=== PATIENT | female | born 1965 | race Caucasian/White ===

== ENCOUNTER 2018-12-04 10:40 | Inpatient (IN) | payer BC ==
[2018-11-23 12:26] LABS: BASOPHILS % (AUTO) 0.3 % (0-1); EOSINOPHILS # (AUTO) 0.1 X10'3 (0-0.9); EOSINOPHILS % (AUTO) 1.1 % (0-6); LYMPHOCYTES # (AUTO) 2.2 X10'3 (1.1-4.8); LYMPHOCYTES % (AUTO) 36.7 % (21-51); MEAN CORPUSCULAR HEMOGLOBIN 29.1 PG (27.0-31.0); MEAN CORPUSCULAR VOLUME 88.2 FL (78-98); MEAN PLATELET VOLUME 9.2 FL (7.4-10.4); MONOCYTES # (AUTO) 0.4 X10'3 (0-0.9); MONOCYTES % (AUTO) 7.1 % (2-12); NEUTROPHILS # (AUTO) 3.3 X10'3 (1.8-7.7); NEUTROPHILS % (AUTO) 54.8 % (42-75); PRE OP HEMOGLOBIN 13.2 g/dL (12.0-16.0); PRE OP PLATELET COUNT 308 X10'3 (140-440); RED BLOOD COUNT 4.54 X10'6 (4.20-5.60); RED CELL DISTRIBUTION WIDTH 12.5 % (11.5-14.5)
[2018-11-23 12:27] LABS: CLARITY,URINE CLEAR (Clear); COLOR,URINE YELLOW (Yellow); GLUCOSE, URINE NEGATIVE (Neg); KETONES,URINE NEGATIVE (Neg); LEUKOCYTE ESTERASE ,URINE NEGATIVE (Neg); NITRITES, URINE NEGATIVE (Neg); OCCULT BLOOD,URINE NEGATIVE (Neg); PROTEIN,URINE NEGATIVE (Neg); UROBILINOGEN,URINE 0.2 E.U/dL (0.2-1.0)
[2018-11-23 12:29] LABS: UA COLLECTION TYPE NON-SPECIFIED
[2018-11-23 12:32] LABS: PRE OP PROTIME 10.1 SECONDS (9.0-12.0)
[2018-11-23 12:42] LABS: ALBUMIN 3.9 G/DL (3.4-5.0); ALKALINE PHOSPHATASE 48 IU/L (46-116); BLOOD UREA NITROGEN 14 MG/DL (7-18); BUN/CREATININE RATIO 17.3 (6.6-38.0); CALCIUM 9.7 MG/DL (8.5-10.1); CHLORIDE 102 MMOL/L (99-107); CREATININE 0.81 MG/DL (0.40-0.90); PRE OP ALT 36 U/L (30-65); PRE OP ANION GAP 6 (8-16); PRE OP AST 25 U/L (10-37); PRE OP BILIRUB, TOTAL 0.2 MG/DL (0.0-1.0); PRE OP GLUCOSE 103 MG/DL (70-104); PRE OP SODIUM 139 MMOL/L (135-145); TOTAL CARBON DIOXIDE 30.8 MMOL/L (24-32); eGFR 74 ML/MIN
[~2018-12-04] VITALS: Ht 170.2 cm; Wt 95.4 kg
[2018-12-04] VITALS (16 sets, daily range): BP systolic 125–160; BP diastolic 51–86
[~2018-12-04 10:40] MED LIST: ASCO500C15 PO; CALC-1051 PO; CETI-102 PO; CHOL10002 PO; ESTR1TAB19 PO; FISH12002 PO; MULT-933 PO; OMEP-84 PO; THY60T PO; acetaminophen 325mg tablet PO ONE; celeCOXIB 100mg capsule PO ONE; famotidine 20mg tablet PO ONE; gabapentin 300mg capsule PO ONE; oxyCODONE SR 10mg (sust. release) tab -2 tabs (20mg) PO ONE; ringers solution, lacted 1,000 ML IV SCH; tranexamic acid inj. 1,000 MG in normal saline 100 ML IV ONE; vancomycin inj 1,500 MG in normal saline 300ml IV soln IV ONE
[2018-12-04] MEDS ORDERED: LIDOcaine 1% (10mg/ml) 2ml vial ONE (12:18)
[2018-12-04] MEDS ORDERED: bacitracin inj 150,000 UNIT in sodium chloride irrig. sol 3,000 ML IR ONE (13:00)
[2018-12-04] MEDS ORDERED: ROPIVAcaine 0.5% (5mg/ml) 30ml vial ONE ×2 (13:28→13:43)
[2018-12-04] MEDS ORDERED: dexmedetomidine 200mcg/2ml inj. IV ONE (13:42)
[2018-12-04] MEDS ORDERED: sevoflurane 250ml liquid IH ONE (13:42)
[2018-12-04] MEDS ORDERED: dexamethasone sod phosphate 10mg/ml inj ONE (13:42)
[2018-12-04] MEDS ORDERED: tetracaine 1% (10mg/ml) pres. free inj. ONE (13:43)
[2018-12-04] MEDS ORDERED: morphine /PF 1mg/ml 10ml inj. ONE (13:47)
[2018-12-04] MEDS ORDERED: fentaNYL/PF 50MCG/1 ML 2ML syringe ONE (13:47)
[2018-12-04] MEDS ORDERED: ondansetron/PF 4mg/2ml inj ONE (14:29)
[2018-12-04] MEDS ORDERED: propofol inj 20 ML IV ONE (14:29)
[2018-12-04] MEDS ORDERED: ringers solution, lacted 1,000 ML IV SCH (14:41)
[2018-12-04] MEDS ORDERED: diphenhydrAMINE 50 mg/ml inj IV PRN (14:45)
[2018-12-04] MEDS ORDERED: enalaprilat dihydrate 2.5mg/2ml vial IV PRN (14:45)
[2018-12-04] MEDS ORDERED: fentaNYL/PF 50MCG/1 ML 2ML syringe IV PRN ×2 (14:45)
[2018-12-04] MEDS ORDERED: meperidine/PF 25mg/ml syringe IV PRN ×2 (14:45)
[2018-12-04] MEDS ORDERED: hydrALAZINE 20mg/ml inj. IV PRN (14:45)
[2018-12-04] MEDS ORDERED: ondansetron/PF 4mg/2ml inj IV PRN ×2 (14:45)
[2018-12-04] MEDS ORDERED: bisacodyl 10mg suppository rectal RC PRN (16:10)
[2018-12-04] MEDS ORDERED: magnesium hydroxide 30ml (MOM) UD suspension PO PRN (16:10)
[2018-12-04] MEDS ORDERED: acetaminophen 325mg tablet PO PRN (16:10)
[2018-12-04] MEDS ORDERED: diphenhydrAMINE 25mg capsule PO PRN ×2 (16:10)
--- NOTE | 2018-12-04 16:34 | NUR ---
Received from OR via , accompanied by DR. PATINO, Anesthesiologist and report given by Anesthesiolgist. S/P RT. TKA PER DR. HOGAN W/ SPINAL ANESTHESIA. PT. A X O X 4. APPROP. RESPS. EVEN & UNLABORED. SPINAL LEVEL L1. NO MOVEMENT OF TOES @ THIS TIME. RT KNEE BANDAGE DRY & INTACT. POWDER YAMILKA IN PLACE KNEE BRACE TO RT. KNEE IN PLACE FROM OR. HEMOVAC DRAIN TO MARIELA W/ SM. AMT. SANG DRAINAGE PRESENT. RT. FOOT PINK, WARM W/ GOOD CAP REFILL. + PALP RT. DP PULSE PRESENT. HOLLOWAY TO GRAVITY W/ CL. YELLOW URINE PRESENT. RT. HAND IV PATENT. REASSURED.
--- NOTE | 2018-12-04 17:25 | NUR ---
Report called to receiving nurse, VIPUL CHAPIN . Transferred via BED. Belongings W/ PT. PT. A X O X 4. APPROP. RESPS. EVEN & UNLABORED. SPINAL LEVEL L2. DENIES PAIN. RT. KNEE BANDAGE DRY & INTACT. POWDER YAMILKA IN PLACE, KNEE BRACE IN PLACE. HEMOVAC DRAIN TO MARIELA W/ SM. AMT. SANG DRAINAGE PRESENT. RT. FOOT PINK, WARM W/ GOOD CAP REFILL. + PALP. PULSES LT. FOOT. HOLLOWAY TO GRAVITY W/ CL. YELLOW URINE. RT. HAND IV PATENT. REASSURED. . Special Issues communicated to receiving nurse.
--- NOTE | 2018-12-04 18:55 | NUR ---
Student documentation: I have reviewed and agree with all interventions, assessments performed and documented by FRANCIS MACK.
[2018-12-04] MEDS ORDERED: vancomycin/NS 1 GM ADD-VANTAGE 250 ML IV SCH (20:00)
[2018-12-04] MEDS: ondansetron/PF 4mg/2ml inj IV PRN (20:03)
[2018-12-04] MEDS: potassium cl 20mEq in 1/2 NS 1,000 ML IV SCH (20:09)
[2018-12-04] MEDS: gabapentin 300mg capsule PO SCH (20:40)
[2018-12-04] MEDS: oxyCODONE/APAP 10/325mg tablet PO PRN (20:41)
[2018-12-04] MEDS: ascorbic acid 500mg tablet PO SCH (20:41)
[2018-12-04] MEDS: sennosides 8.6mg tablet PO SCH (21:00)
[2018-12-04] MEDS ORDERED: proCHLORperazine 10 MG/2 ml inj IV PRN (22:25)
[2018-12-05] MEDS: oxyCODONE/APAP 10/325mg tablet PO PRN ×6 (01:13→22:19)
[2018-12-05 02:00] VITALS: BP 93/43
[2018-12-05] MEDS: potassium cl 20mEq in 1/2 NS 1,000 ML IV SCH ×3 (03:20→20:37)
[2018-12-05 06:00] VITALS: BP 94/52
[2018-12-05 06:12] LABS: BASOPHILS % (AUTO) 0.2 % (0-1); EOSINOPHILS % (AUTO) 0 % (0-6); HEMOGLOBIN 10.5 g/dl (12.0-16.0); LYMPHOCYTES # (AUTO) 1.2 X10'3 (1.1-4.8); MEAN CORPUSCULAR HGB CONC 33.9 g/dL (33.0-36.5); MEAN CORPUSCULAR VOLUME 88.4 FL (78-98); MEAN PLATELET VOLUME 9.3 FL (7.4-10.4); MONOCYTES # (AUTO) 0.6 X10'3 (0-0.9); MONOCYTES % (AUTO) 5.6 % (2-12); NEUTROPHILS # (AUTO) 9.3 X10'3 (1.8-7.7); NEUTROPHILS % (AUTO) 83.2 % (42-75); PLATELET COUNT 236 X10'3 (140-440); RED BLOOD COUNT 3.51 X10'6 (4.20-5.60); RED CELL DISTRIBUTION WIDTH 12.4 % (11.5-14.5); WHITE BLOOD COUNT 11.1 X10'3 (4.5-11.0)
[2018-12-05 06:17] LABS: ANION GAP 8 (8-16); CHLORIDE 105 MMOL/L (99-107); POTASSIUM 4.1 MMOL/L (3.5-5.1); SODIUM 138 MMOL/L (135-145); TOTAL CARBON DIOXIDE 24.9 MMOL/L (24-32)
--- NOTE | 2018-12-05 06:28 | NUR ---
Report given to Kellen MATTHEW.
[2018-12-05 06:34] LABS: INR 1.1 INR
[2018-12-05] MEDS: lactose-reduced food (Ensure High Protein) 237ml bottle PO SCH (08:00)
[2018-12-05] MEDS: estradiol 1mg tablet PO SCH (08:00)
[2018-12-05] MEDS: ondansetron/PF 4mg/2ml inj IV PRN (08:08)
[2018-12-05] MEDS: multivitamins, therapeutics tablet PO SCH (09:28)
[2018-12-05] MEDS: gabapentin 300mg capsule PO SCH ×3 (09:28→20:41)
[2018-12-05] MEDS: pantoprazole 40mg Tablet.DR PO SCH (09:28)
[2018-12-05] MEDS: thyroid, pork 30mg tablet PO SCH (09:29)
[2018-12-05] MEDS: ascorbic acid 500mg tablet PO SCH ×2 (09:29→20:42)
[2018-12-05 10:00] VITALS: BP 99/55
[2018-12-05] MEDS ORDERED: warfarin 10mg tablet PO ONE (10:00)
[2018-12-05] MEDS: HYDROmorphone 1 mg/ml syringe IV PRN ×2 (17:22→23:19)
--- NOTE | 2018-12-05 17:59 | NUR ---
Joint replacement consult: Pt seen by ABBI for written/verbal high protein ed. ABBI reviewed high protein needs for wound healing, immune strength, high protein foods, and protein supplementation options. Pt agrees to galocolate ensure high protein TIRasWGosia; and dietary notified. Addendum: 12/05/18 at [address] Amended: Links added.
[2018-12-05 18:00] VITALS: BP 116/40
--- NOTE | 2018-12-05 18:30 | NUR ---
Problems reprioritized. Patient report given, questions answered & plan of care reviewed with VIPUL Tovar.
[2018-12-05] MEDS: celeCOXIB 100mg capsule PO SCH (20:41)
[2018-12-05] MEDS: sennosides 8.6mg tablet PO SCH (20:42)
[2018-12-05 22:00] VITALS: BP 111/64
[2018-12-06] MEDS: potassium cl 20mEq in 1/2 NS 1,000 ML IV SCH (00:09)
[2018-12-06 02:00] VITALS: BP 113/59
[2018-12-06] MEDS: oxyCODONE/APAP 10/325mg tablet PO PRN ×3 (02:07→10:26)
[2018-12-06 06:00] VITALS: BP 124/80
--- NOTE | 2018-12-06 06:00 | NUR ---
Removed sprague catheter as ordered, patient tolerated well. Pt verbalized understanding to use call light for assistance to restroom. Call light within reach of patient.
--- NOTE | 2018-12-06 06:10 | NUR ---
Report given to Kellen MATTHEW.
[2018-12-06 06:35] LABS: BASOPHILS % (AUTO) 0.2 % (0-1); EOSINOPHILS % (AUTO) 0.3 % (0-6); HEMATOCRIT 31.3 % (35.0-45.0); HEMOGLOBIN 10.5 g/dl (12.0-16.0); LYMPHOCYTES # (AUTO) 1.8 X10'3 (1.1-4.8); LYMPHOCYTES % (AUTO) 16.7 % (21-51); MEAN CORPUSCULAR HEMOGLOBIN 29.8 PG (27.0-31.0); MEAN CORPUSCULAR HGB CONC 33.5 g/dL (33.0-36.5); MEAN CORPUSCULAR VOLUME 89.1 FL (78-98); MEAN PLATELET VOLUME 9.5 FL (7.4-10.4); MONOCYTES % (AUTO) 9.1 % (2-12); NEUTROPHILS # (AUTO) 7.9 X10'3 (1.8-7.7); NEUTROPHILS % (AUTO) 73.7 % (42-75); PLATELET COUNT 217 X10'3 (140-440); RED BLOOD COUNT 3.51 X10'6 (4.20-5.60); WHITE BLOOD COUNT 10.7 X10'3 (4.5-11.0)
[2018-12-06 06:45] LABS: INR 1.3 INR; PROTHROMBIN TIME 13.3 SECONDS (9.0-12.0)
[2018-12-06] MEDS: ondansetron/PF 4mg/2ml inj IV PRN (07:09)
[2018-12-06] MEDS: lactose-reduced food (Ensure High Protein) 237ml bottle PO SCH (08:04)
[2018-12-06] MEDS: gabapentin 300mg capsule PO SCH (08:15)
[2018-12-06] MEDS: estradiol 1mg tablet PO SCH (08:15)
[2018-12-06] MEDS: celeCOXIB 100mg capsule PO SCH (08:15)
[2018-12-06] MEDS: thyroid, pork 30mg tablet PO SCH (08:15)
[2018-12-06] MEDS: ascorbic acid 500mg tablet PO SCH (08:15)
[2018-12-06] MEDS: multivitamins, therapeutics tablet PO SCH (08:15)
[2018-12-06] MEDS: pantoprazole 40mg Tablet.DR PO SCH (08:15)
[2018-12-06] MEDS ORDERED: ASPI-1264 PO (09:18)
[2018-12-06] MEDS ORDERED: warfarin 7.5mg tablet PO ONE ×2 (10:00→10:20)
--- NOTE | 2018-12-06 10:45 | NUR ---
Received discharge instructions from CLARA Luna. Saline lock from [facility] dc'd with cannula intact. No redness/swelling at IV site. Applied 2x2 and bandaid. Gave pt 2 Coolpaks to take home today. Pt to receive Nurse & PT services when she arrives home. Discharge teaching done. Provided 2 island dressings for pt when she removes her dressing tomorrow and showers. Pt has RX for pain medication from Dr. Moe. Discharged via w/c to private vehicle for dc to home.
[2018-12-06] MEDS ORDERED: acetaminophen 325mg tablet PO PRN (16:10)
== END 2018-12-06 10:50 | disposition home health service (06) | DRG 470 ==
LOC: PAS IN 11:59 → EDSTATUS 14:00 → ORTHO 4S 17:36
PROVIDERS: ADMIT Specialist; ATTEND Specialist
PROC: 3E0T3BZ Introduction of Anesthetic Agent into Peripheral Nerves and Plexi, Percutaneous Approach (ICD-10-PCS; 2018-12-04)
PROC: 0SRC0J9 Replacement of Right Knee Joint with Synthetic Substitute, Cemented, Open Approach (ICD-10-PCS; principal; 2018-12-04 13:42)
PROC: 5A09357 Assistance with Respiratory Ventilation, Less than 24 Consecutive Hours, Continuous Positive Airway Pressure (ICD-10-PCS; 2018-12-05)
DX: M17.11 Unilateral primary osteoarthritis, right knee (principal); D62 Acute posthemorrhagic anemia; E03.9 Hypothyroidism, unspecified; G47.30 Sleep apnea, unspecified; G89.29 Other chronic pain; M54.2 Cervicalgia; K21.9 Gastro-esophageal reflux disease without esophagitis; M21.161 Varus deformity, not elsewhere classified, right knee; Z90.49 Acquired absence of other specified parts of digestive tract; Z90.710 Acquired absence of both cervix and uterus; Z79.899 Other long term (current) drug therapy; Z88.5 Allergy status to narcotic agent; Z88.0 Allergy status to penicillin; Z88.8 Allergy status to other drugs, medicaments and biological substances
CPT/HCPCS: 36415; 73560; 80051; 80053; 81003; 82948; 84443; 85025; 85610; 85730; 87070; 97110; 97116; 97161; 97530; A6449; A6455; A7000; C1713; C1758; C1776; G0378; J0780; J1100; J1170; J2274; J2405; J2704; J2795; J3010; J3370; J3490; J7030; J7120

== ENCOUNTER 2024-04-24 15:08 | Emergency (ER) | payer BC ==
[~2024-04-24] VITALS: Ht 170.2 cm; Wt 80.7 kg
[~2024-04-24 15:08] MED LIST changes: -ASCO500C15 PO; +ASCO500C18 PO; -CETI-102 PO; +CETI-90 PO; -acetaminophen 325mg tablet PO ONE; -celeCOXIB 100mg capsule PO ONE; -famotidine 20mg tablet PO ONE; -gabapentin 300mg capsule PO ONE; -oxyCODONE SR 10mg (sust. release) tab -2 tabs (20mg) PO ONE; -ringers solution, lacted 1,000 ML IV SCH; -tranexamic acid inj. 1,000 MG in normal saline 100 ML IV ONE; -vancomycin inj 1,500 MG in normal saline 300ml IV soln IV ONE
[2024-04-24 15:33] VITALS: TEMP 97.6
[2024-04-24 15:33] LABS: HEMOGLOBIN 13.1 g/dl (12.0-16.0); MEAN CORPUSCULAR HGB CONC 33.5 g/dL (33.0-36.5)
[2024-04-24 15:35] LABS: BASOPHILS % (AUTO) 0.3 % (0-1); EOSINOPHILS # (AUTO) 0.2 X10'3 (0-0.9); HEMATOCRIT 39.1 % (35.0-45.0); LYMPHOCYTES # (AUTO) 2.8 X10'3 (1.1-4.8); LYMPHOCYTES % (AUTO) 34.3 % (21-51); MEAN CORPUSCULAR VOLUME 89.3 FL (78-98); MEAN PLATELET VOLUME 8.6 FL (7.4-10.4); MONOCYTES # (AUTO) 0.6 X10'3 (0-0.9); MONOCYTES % (AUTO) 7.1 % (2-12); NEUTROPHILS # (AUTO) 4.5 X10'3 (1.8-7.7); NEUTROPHILS % (AUTO) 56.3 % (42-75); PLATELET COUNT 307 X10'3 (140-440); RED BLOOD COUNT 4.38 X10'6 (4.20-5.60); RED CELL DISTRIBUTION WIDTH 12.5 % (11.5-14.5); WHITE BLOOD COUNT 8.1 X10'3 (4.5-11.0)
[2024-04-24 16:04] LABS: ALANINE AMINOTRANSFERASE 26 U/L (12-78); ALBUMIN 3.5 G/DL (3.4-5.0); ALBUMIN/GLOBULIN RATIO 0.9 (1.1-1.5); ALKALINE PHOSPHATASE 47 IU/L (46-116); ANION GAP 10 (8-16); ASPARTATE AMINO TRANSFERASE 21 U/L (10-37); BILIRUBIN,TOTAL 0.2 MG/DL (0.1-1.0); BLOOD UREA NITROGEN 14 MG/DL (7-18); BUN/CREATININE RATIO 17.1 (10.0-20.0); CALCIUM 9.1 MG/DL (8.5-10.1); CHLORIDE 103 MMOL/L (99-107); CREATININE 0.82 MG/DL (0.40-0.90); GLUCOSE 94 MG/DL (70-104); POTASSIUM 3.9 MMOL/L (3.5-5.1); PRO BRAIN NATRIURETIC PEPTIDE 73 PG/ML (0-125); SODIUM 140 MMOL/L (135-145); TOTAL CARBON DIOXIDE 27.4 MMOL/L (24-32); TOTAL PROTEIN 7.5 G/DL (6.4-8.2); eCRCL 71 ML/MIN; eGFR 71 ML/MIN
[2024-04-24 17:01] LABS: FREE T4 (FREE THYROXINE) 0.94 NG/DL (0.73-1.40); MAGNESIUM 1.7 MG/DL (1.5-2.4); THYROID STIMULATING HORMONE 0.66 ulU/ml (0.34-4.50)
[2024-04-24 17:24] LABS: APTT 25 SECONDS (22-32); PROTHROMBIN TIME 10.8 SECONDS (9.0-12.0)
[2024-04-24 18:03] VITALS: BP 126/59; PULSE 82; O2SAT 97
[2024-04-24 18:34] VITALS: RESP 16
== END 2024-04-24 18:05 | disposition home or self-care (01) ==
LOC: ER 15:09
DX: R07.89 Other chest pain (principal); E78.00 Pure hypercholesterolemia, unspecified; Z88.1 Allergy status to other antibiotic agents; Z88.0 Allergy status to penicillin; Z88.5 Allergy status to narcotic agent; Z79.899 Other long term (current) drug therapy; Z98.890 Other specified postprocedural states; Z90.49 Acquired absence of other specified parts of digestive tract; Z90.710 Acquired absence of both cervix and uterus
CPT/HCPCS: 36415; 71045; 80053; 83735; 83880; 84439; 84443; 84484; 85025; 85610; 85730; 93005; 99285

== ENCOUNTER 2025-04-09 16:27 | Observation (INO) | payer BC ==
[~2025-04-09] VITALS: Ht 170.2 cm; Wt 84.2 kg
--- NOTE | 2025-04-09 16:49 | ELECTROCARDIOGRAPH REPORT ---
[facility] Test Date: 2025-04-09 Test Time: 16:34:45 Pat Name: JULIANNA GREGORIO Department: EMERGENCY ROOM Room: [place] [address] Gender: F Special Education Associate: : 1965 Requested By: GORAN JOLLEY Order Number: [id number] Reading MD: Dr. Terry Gomez Measurements Intervals [place] Rate: 60 P: 20 NV: 161 QRS: 18 QRSD: 84 T: 59 QT: 419 QTc: 419 Interpretive Statements Sinus rhythm Anteroseptal infarct, age indeterminate Electronically Signed On 05-08-2025 18:40:[address] Terry Gomez Please click the below link to view image of tracing.
--- NOTE | 2025-04-09 17:30 | RADIOLOGY REPORT ---
CLINICAL HISTORY: CP TECHNIQUE: Single view of the chest was obtained. COMPARISON: DI CHEST,SINGLE VIEW on DOS: 04/24/24 FINDINGS: The heart size and pulmonary vasculature are normal. The lungs are clear. IMPRESSION: NO ACUTE CARDIOPULMONARY PROCESS.
[2025-04-09 17:42] LABS: MEAN PLATELET VOLUME 9.8 FL (7.4-10.4); RED CELL DISTRIBUTION WIDTH 13.1 % (11.5-14.5)
[2025-04-09 17:52] LABS: CREATININE 0.75 MG/DL (0.40-0.90); PRO BRAIN NATRIURETIC PEPTIDE 154 PG/ML (0-125); TOTAL CARBON DIOXIDE 28.9 MMOL/L (24-32); eCRCL 77 ML/MIN; eGFR 79 ML/MIN
--- NOTE | 2025-04-09 22:36 | Physician Documentation ---
History of Present Illness ~ Chief Complaint: Chest Pain Stated Complaint: CHEST PAIN Time Seen by MD: 22:35 Primary Medical Doctor: [facility] Patient presents to the emergency room for evaluation of chest pain sent by her bender hand. She reports that she has been having intermittent chest pain over this past month. Today she has started having chest pain at the office of her cardiology appointment and it is given to nitroglycerines with significant improvement and was directed come to the emergency room. She reports she has not had a stress test within the past 10 years. Reports that pain is central pressure in nature radiating into her back. No current symptoms. Also endorses bilateral lower extremity edema over the past couple of weeks but no pain. Medication Reconciliation Allergies: Coded Allergies: Cephalosporins (Verified Allergy, Mild, RASH, 04/09/25) Penicillins (Verified Allergy, Mild, RASH, 04/09/25) Scheduled Ascorbic Acid (Vitamin C), 1 CAP PO DAILY, (Reported) Calcium Carbonate/Vitamin D3 (Calcium 500 + D Tablet), 1 EACH PO DAILY, (Reported) Cetirizine HCl (Zyrtec), 1 TAB PO DAILY, (Reported) Cholecalciferol (Vitamin D3) (Vitamin D3), 1 TAB PO DAILY, (Reported) Estradiol (Estradiol), 1 TAB PO DAILY, (Reported) Fish Oil/Borage/Flax/Om3,6,9#1 ([place] 3-6-9 1,200 mg Softgel), 1 CAP PO DAILY, (Reported) Multivitamin (One Daily Multivitamin), 1 TAB PO DAILY, (Reported) Omeprazole* (Prilosec*), 40 MG PO DAILY, (Reported) Thyroid* ([place] Thyroid*), 120 MG PO DAILY, (Reported) Past Medical History Past Medical History: High Cholesterol Past Surgical History: appendectomy, cholecystectomy, hysterectomy, orthopedic surgeries Drug Use: none, other Lives In: Home Occupation: employed Review of Systems ROS All review of systems negative except as per HPI Physical Exam Vital Signs: Temperature: 97.7, Source: Temporal, Heart Rate: 62, Respiratory Rate: 14, BP: 134/54, Pulse Oximetry: 97, Weight: 84.250 Oxygen Flow Rate: 0 Physical Exam General: Patient is awake, alert, oriented x4 in no acute distress Head: Normocephalic and atraumatic. Eyes: Conjunctival normal. EOMI. PERRL. ENT: Mucous membranes moist. Neck: Supple, trachea is midline. Chest: Clear to auscultation bilaterally without rales, rhonchi, or wheezes. There is no accessory muscle use or retractions. Cardiac: RRR without murmurs, gallops, or rubs. Abd: Soft, nondistended, nontender, with normoactive bowel sounds. No guarding, rebound, or rigidity. Extremities: Normal strength. Normal range of motion. No deformities with mild bilateral 1+ pitting edema Progress Results/Orders Results/Orders Vital Signs 04/09/25 04/09/25 04/09/25 04/09/25 16:47 20:34 22:08 22:35 Temp 98.5 97.7 97.7 Pulse 64 65 62 Resp 18 16 14 14 B/P (MAP) 143/62 178/73 (108) 134/54 (80) Pulse Ox 97 98 97 O2 Flow Rate 0 0 0 Laboratory Tests Test 04/09/25 16:57 04/09/25 19:25 04/09/25 20:15 White Blood Count 7.3 Red Blood Count 4.21 Hemoglobin 12.2 Hematocrit 36.6 Mean Corpuscular Volume 87.1 Mean Corpuscular Hemoglobin 29.0 Mean Corpuscular Hemoglobin Concent 33.3 Red Cell Distribution Width 13.1 Platelet Count 269 Mean Platelet Volume 9.8 Neutrophils (%) (Auto) 63.0 Lymphocytes (%) (Auto) 28.8 Monocytes (%) (Auto) 6.9 Eosinophils (%) (Auto) 0.7 Basophils (%) (Auto) 0.6 Neutrophils # (Auto) 4.6 Lymphocytes # (Auto) 2.1 Monocytes # (Auto) 0.5 Eosinophils # (Auto) 0.0 Basophils # (Auto) 0.0 CBC Comment Sodium Level 140 Potassium Level 4.1 Chloride Level 104 Carbon Dioxide Level 28.9 Anion Gap 7 L Blood Urea Nitrogen 16 Creatinine 0.75 Estimated GFR/1.73 m2 79 BUN/Creatinine Ratio 21.3 H Glucose Level 91 Calcium Level 9.2 Troponin I High Sensitivity 5 6 6 Pro-B-Type Natriuretic Peptide 154 H Albumin 3.5 Chemistry Comments Troponin I High Sens Percent Delta 20 0 Troponin I Hi Sens Absolute Change 1 0 EKG/XRAY/CT/US/VASC/MRI EKG : Additional Comment EKG interpreted by myself shows time of 1634, rate 60, sinus rhythm, normal axis, no ST changes Chest X-Ray : Additional Comments Exam: CHEST,SINGLE VIEW CLINICAL HISTORY: CP TECHNIQUE: Single view of the chest was obtained. COMPARISON: DI CHEST,SINGLE VIEW on DOS: 04/24/24 FINDINGS: The heart size and pulmonary vasculature are normal. The lungs are clear. IMPRESSION: NO ACUTE CARDIOPULMONARY PROCESS. Medical Decision Making Findings Patient presents to the emergency room for evaluation of chest pain sent by bender hand. Patient has some typical chest pain features and I we will give her two points for her history. Along with the patient's age and risk factors she is considered high risk with a heart score of four. We will admit for further investigation. Departure Admitted to Inpatient Unit: yes, to hospitalist Impression: Primary Impression: Chest pain Condition: Guarded Referrals: NO PRIMARY CARE PROVIDER (PCP) Signature Scribe Signature: No scribe Attestation: The note accurately reflects work and decisions made by me.Talon Antony MD 04/09/25 22:44 TALON ANTONY MD Apr 09, 2025 22:36
[2025-04-10] VITALS (20 sets, daily range): BP systolic 108–164; BP diastolic 48–70; PULSE 58–110; RESP 12–18; TEMP 96.8–98.1; O2SAT 70–100
[2025-04-10] MEDS ORDERED: potassium Cl 20 mEq SR tablet PO PRN ×2 (00:10)
[2025-04-10] MEDS ORDERED: magnesium Cl slow-release 64mg tablet PO PRN (00:10)
[2025-04-10] MEDS ORDERED: ondansetron/PF 4mg/2ml inj IV PRN (00:10)
[2025-04-10] MEDS ORDERED: magnesium sulf-water 4G/100mL 100 ML IV PRN (00:10)
[2025-04-10] MEDS ORDERED: magnesium sulf-water 2g/50mL 50 ML IV PRN (00:10)
[2025-04-10] MEDS ORDERED: magnesium hydroxide 30ml (MOM) UD suspension PO PRN (00:10)
[2025-04-10] MEDS ORDERED: potassium Cl 40MEQ/1/2NS 520ml 520 ML IV PRN (00:10)
[2025-04-10] MEDS ORDERED: mag hydrox/Alum hydrox/simeth 30ml oral suspension PO PRN (00:10)
[2025-04-10] MEDS ORDERED: PERFLUTREN PROTEIN-A MICROSPHR (Optison) 0.22 MG/ML 3ML VIAL IV PRN (00:45)
--- NOTE | 2025-04-10 00:48 | HISTORY AND PHYSICAL-Residence ---
History & Physical Providers to CC Resident Creating Document: MOISES WESLEY, CARMEN ~ History of Present Illness Primary Medical Doctor: Suly Turpin Reason for Admit\Complaint: Unstable Angina History of Present Illness This is a 60-year-old female with known history of MELISSA, recently diagnosed hypertension, presented to ER with complaint of chest pain. Patient states she has been experiencing chest pain for the past one month which is radiating to back and is aggravated on exertion, improves with rest but does not completely resolve. She also feels chest heaviness and pressure on her chest. Her chest pain is associated with sweating and shortness of breaths. She also reports bilateral lower extremity edema for the past couple of weeks, she denies nausea and vomitting,she also feel fatigue fatigue for the past 1 month. [address] patient [facility], where she experienced chest pain and received 2 doses of sublingual nitroglycerin, her pain was significantly improved and she was directed to go to ER. She had echo and stress test done on 2007. She also mentions for the past 1 week her blood pressure is high,On Tuesday she went to [facility] for chest pain and her blood pressure was 189/90, she was admitted there for 1 day and she had ct scan chest abdomen pelvis with contast, patient mentions that it was normal, she reports that her BP has been normal since Tuesday, she is not taking anything for her blood pressure. She also had CT angio Chest done 04/07/2025 which showed no evidence of pulmonary embolism. 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 Patient also mentions in her childhood doctor told her she had a murmur and before every sport she used to have ECG performed. Allergies: Coded Allergies: Cephalosporins (Verified Allergy, Mild, RASH, 04/09/25) Penicillins (Verified Allergy, Mild, RASH, 04/09/25) Home Medications Home Medications Active Reported [place] 3-6-9 1,200 mg Softgel (Fish Oil/Borage/Flax/Om3,6,9#1) 1,200 Mg Capsule 1 Cap PO DAILY Vitamin D3 (Cholecalciferol (Vitamin D3)) 1,000 Unit Tablet 1 Tab PO DAILY Calcium 500 + D Tablet (Calcium Carbonate/Vitamin D3) 1 Each Tablet 1 Each PO DAILY Vitamin C (Ascorbic Acid) 500 Mg Capsule.er 1 Cap PO DAILY One Daily Multivitamin (Multivitamin) 1 Each Tablet 1 Tab PO DAILY Zyrtec (Cetirizine HCl) 10 Mg Tablet 1 Tab PO DAILY Estradiol 1 Mg Tablet 1 Tab PO DAILY Prilosec* (Omeprazole) 20 Mg Capsule.dr 40 Mg PO DAILY [place] Thyroid* (Thyroid) 60 Mg Tablet 120 Mg PO DAILY Past Medical History Past Medical History Obstructive sleep apnea High blood pressure Hypothyroidism Patient also mentions in her childhood doctor told her she had a murmur and before every sport she used to have ECG performed. 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 Lives In: Home Occupation: employed ROS Constitutional: Reports: other (fatigue) Eyes: Reports: no symptoms reported ENT: Reports: no symptoms reported Respiratory: Reports: shortness of breath Cardiovascular: Reports: chest pain Gastrointestinal: Reports: no symptoms reported Genitourinary: Reports: no symptoms reported Female Genitalia: Reports: no reported symptoms Neurological: Reports: no symptoms reported Musculoskeletal: Reports: no symptoms reported Integumentary: Reports: no symptoms reported Allergic/Immunologic: Reports: hives (with cephalosporins and pencillins.), itching (with cephalosporins and pencillins.) Hematologic/Lymphatic: Reports: no symptoms reported Endocrine: Reports: no symptoms reported Psychiatric: Reports: no symptoms reported Exam Vitals: Vital Signs Date Time Temp Pulse Resp B/P (MAP) Pulse Ox O2 Delivery O2 Flow Rate FiO2 04/10/25 00:39 58 17 122/64 (83) 98 04/09/25 22:08 97.7 0 General: General: awake, alert oriented to place, time, and person HEENT: No pallor present, no icterus, moist mucous membranes Neck: No masses and tenderness Resp: Unlabored. Lungs clear to auscultation bilaterally. Chest: Normal expansion. Cardiovascular: Regular Rate and rhythm, normal S1 and S2 without murmur, rub or gallop Abdomen: Soft and non tender in epigastrium, no organomegaly, no guarding and rigidity, bowel sounds present Neuro: No focal weakness in the upper and lower limb muscles, power of the muscles 5/5 bilateral upper and lower extremities, normal reflexes bilaterally. Cranial nerves intact Extremities: No cyanosis,clubbing or edema Skin: Warm and Dry. No lesions Psych: Normal affect Diagnostic Data Last Recorded Lab Results: 04/09/[id number] Advance Care Planning Advanced Care plannin - 30 Minutes (I spent 17 minutes in discussing various resuscitative measure with the patient she chose to be full code.) Additional Plan This is a 60-year-old female with known history of MELISSA, hypertension, presented to ER with complaint of chest pain. Patient states she has been experiencing chest pain for the past one month which is radiating to back and is aggravated on exertion, improves with rest but does not completely resolve. She also feels chest heaviness and pressure on her chest. Her chest pain is associated with sweating and shortness of breaths. She also reports bilateral lower extremity edema, she denies nausea and vomitting,she also feel fatigue fatigue for the past 1 month. Today patient [facility], where she experienced chest pain and received 2 doses of sublingual nitroglycerin, her pain was significantly improved and she was directed to go to ER. She had echo and stress test done on 2007. Plan Acute Coronary Syndrome/Unstable Angina Archie score is 2 Heart score is 2 trops negative t x3 5,6,6 ECG shows sinus rhythm,T wave inversion in V2. Follow up with Echo and Lexiscan scan Follow up with lipid panel Amlodipine 5 mg PO Aspirin 81 mg daily Atorvastatin 40 mg daily Placed patient on telemetry Consider Cardiology consult depending on Lexiscan. Hypertension Amlodipine 5 mg Monitor Blood Pressure Elevated Pro Bnp 125 Follow up with Echo Hypothyrodism Continue levothyroxine 120 mcg Follow up with TSH Dvt Prophylaxis: Heparin Code Status: Full Code Moises Wesley PGY 1 INTERNAL MEDICINE RESIDENT Patient was evaluated using HIPPA complaint AV device Agree with plans as discussed with the resident Carlos Perez MD Date of Service: Apr 10, 2025 Billing Provider: CARLOS PEREZ MD, SANJAY, RES Apr 10, 2025 00:48 CARLOS PEREZ MD Apr 10, 2025 04:13
[2025-04-10] MEDS ORDERED: aminophylline 250mg/10ml inj. IV PRN (01:05)
[2025-04-10] MEDS ORDERED: metoprolol tartrate 1mg/ml inj IV PRN (01:05)
[2025-04-10] MEDS: heparin, porcine 5000 units/ml vial SQ SCH (02:34)
[2025-04-10] MEDS ORDERED: levoTHYROXINE 25mcg tablet PO SCH (07:00)
[2025-04-10 07:42] LABS: CHOL/HDL RATIO 2.7 (0.00-4.99); LDL CHOLESTEROL 100 MG/DL (50-100)
[2025-04-10] MEDS: thyroid, pork 30mg tablet PO SCH (07:52)
[2025-04-10] MEDS: docusate sod 100mg capsule PO SCH (07:52)
[2025-04-10] MEDS: pantoprazole 40mg Tablet.DR PO SCH ×2 (07:52→21:30)
[2025-04-10] MEDS ORDERED: metoprolol succinate 25mg (24-HOUR) SR. Tablet PO SCH (08:00)
[2025-04-10] MEDS: K and/or MAG REPLACEMENT MC SCH (08:00)
[2025-04-10] MEDS: regadenoson 0.4mg/5ml syringe IV PRN (09:14)
--- NOTE | 2025-04-10 11:10 | RADIOLOGY REPORT ---
Procedure: NM NM DEANNA SCAN Exam Date: 04/10/2025 08:17 AM Reason for study/Clinical History: Chest pain Comparison Study: None Myocardial Perfusion Study with SPECT Technique: The patient received an intravenous injection of 8.9 mCi of technetium-99m sestamibi whil e at rest. After a short delay, SPECT tomographic images of the heart were obtained. The patient th en went to the stress lab where they received an intravenous infusion of 0.[address] andard protocol. 35.8 mCi of technetium-99m sestamibi was injected intravenously immediately after the start of the lexiscan infusion. Gated SPECT tomographic images of the heart were acquired and pr ocessed. Findings: No reversible perfusion defect. End diastolic volume: 69 mL End systolic volume: 27 mL The left ventricular ejection fraction is 61 %. (normal greater than 50%) Impression: There is no reversible perfusion defect. The left ventricular ejection fraction is normal at 61%. Otherwise, normal myocardial perfusion study.
--- NOTE | 2025-04-10 16:40 | CARDIOLOGY REPORT ---
APPROVED REPORT EXAM: Comprehensive 2D, Doppler, and color-flow Echocardiogram. Patient Location: [facility] Blood Pressure: 134/58 mmHg Heart Rate: 61 bpm Rhythm: NSR Indications Chest Pain Pro BNP 154 Manager Paid unknown No previous echo 2D Dimensions LA Diam4.2 cm IVSd 1.1 (0.7-1.1cm) LVDd 4.8 cm PWd 1.1 (0.7-1.1cm) IVSs 1.3 (0.8-1.2cm) LVDs 3.4 (2.5-4.0cm) Aortic Root(2D) 2.9 cm PWs 1.6 (0.8-1.2cm) LVOT Diameter 1.94 (1.8-2.4cm) LVEF(%) 56.5 (>50%) Ao Asc Diam.3.22 cmIVC 17.04 mm FS (%) 29.6 % SV 61.7 ml CO 3.8 L/min M-Mode Dimensions MV EPSS 0.4 (<0.5cm) Aortic Valve AoV Peak Alvaro. 215.4 cm/s AoV VTI 49.9 cm AO Peak GR. 18.6 mmHg AO Mean GR. 9 mmHg LVOT VTI 39.51 cm LVOT Peak Alvaro. 170.4 cm/s LAWRENCE(VTI)/BSA 2.34 cm2/m2 LAWRENCE (VTI) 2.34 cm2 AI P 1/2 Time 456 ms Mitral Valve MV E Velocity 93.9 cm/s MV Peak Gr. 6 mmHg MV DECEL TIME 280 ms MV A Velocity 105.0 cm/s MV PHT 60 ms E/A Ratio 0.9 MVA (PHT) 3.67 cm2 MV BQqi833.9 cm/s TDI Medial E' P. V 12.79 cm/s E/Medial E' 7.3 Tricuspid Valve TR P. Velocity 264 cm/s RAP ESTIMATE 10 mmHg TR Peak Gr. 28 mmHg RVSP 38 mmHg Pulmonary Vein S1 Velocity 64.1 cm/s D2 Velocity 44.1 cm/s PVa [id number] cm/s PVa [id number] msec LEFT VENTRICLE Normal LV size and wall thickness. Overall systolic function is normal. LVEF is 60-65%. RIGHT VENTRICLE RV appears normal in size and function. RVSP is estimated at 38 mmHG. ATRIA Left atrium is mildly dilated. AORTIC VALVE Trileaflet AV appears sclerotic without stenosis. Mild insufficiency. MITRAL VALVE MV is thickened with mild annular thickening and no stenosis. Trace mitral regurgitation. TRICUSPID VALVE The tricuspid valve is normal in structure. Trace tricuspid regurgitation. PULMONIC VALVE The pulmonary valve is normal in structure. Trace pulmonic regurgitation. GREAT VESSELS The aortic root is normal in size. The ascending aorta is normal in size. The IVC is normal in size a nd collapses >50% with inspiration. PERICARDIUM There is no pericardial effusion. Other Information Study Quality: Adequate
[2025-04-11 02:00] VITALS: BP 104/47; PULSE 59; RESP 18; TEMP 97; O2SAT 99
[2025-04-11 06:00] VITALS: BP 117/54; PULSE 60; RESP 13; TEMP 97.3; O2SAT 99
[2025-04-11 06:34] LABS: MEAN PLATELET VOLUME 9.0 FL (7.4-10.4); RED CELL DISTRIBUTION WIDTH 12.8 % (11.5-14.5)
[2025-04-11 06:51] LABS: CREATININE 0.72 MG/DL (0.40-0.90); PHOSPHORUS 3.4 MG/DL (2.3-4.5); TOTAL CARBON DIOXIDE 29.4 MMOL/L (24-32); eCRCL 80 ML/MIN; eGFR 82 ML/MIN
[2025-04-11 07:01] LABS: APTT 26 SECONDS (22-32); INR 1.1 INR
[2025-04-11 08:00] VITALS: RESP 18; O2SAT 98
[2025-04-11 08:58] LABS: PRO BRAIN NATRIURETIC PEPTIDE 39 PG/ML (0-125)
[2025-04-11 11:00] VITALS: BP 124/43; PULSE 63; RESP 16; TEMP 97.3; O2SAT 99
[2025-04-11] MEDS ORDERED: FURO-150 PO (12:56)
[2025-04-11] MEDS ORDERED: PANT40TA54 PO (12:57)
--- NOTE | 2025-04-11 19:42 | DISCHARGE SUMMARY-Residence ---
Discharge Summary Providers to CC Resident Creating Document: KAUR CABAN, CARMEN ~ Discharge Summary Admission Diagnosis: UNSTABLE ANGINA Hospital Course DATE OF ADMISSION: 04/10/2025 DATE OF DISCHARGE: 04/11/2025 Discharge Diagnosis\Comment: Chest pain most likely due to gastritis, cardiac etiology ruled out Congestive heart failure hypertension Sleep apnea Operations\Procedures: Lexiscan-no inducible ischemia Consultants: none Complications: None Condition on DC: Stable New Medications: Furosemide (Lasix) 20 Mg Tablet 20 MG PO DAILY for 30 Days, #30 TAB Pantoprazole Sodium (Pantoprazole Sodium) 40 Mg Tablet.dr 40 MG PO BID for 30 Days, #60 TAB.SR Continued Medications: Ascorbic Acid (Vitamin C) 500 Mg Capsule.er 1 CAP PO DAILY, CAP Calcium Carbonate/Vitamin D3 (Calcium 500 + D Tablet) 1 Each Tablet 1 EACH PO DAILY, TAB Cetirizine HCl (Zyrtec) 10 Mg Tablet 1 TAB PO DAILY, TAB Cholecalciferol (Vitamin D3) (Vitamin D3) 1,000 Unit Tablet 1 TAB PO DAILY, TAB Estradiol (Estradiol) 1 Mg Tablet 1 TAB PO DAILY, TAB Multivitamin (One Daily Multivitamin) 1 Each Tablet 1 TAB PO DAILY, TAB Thyroid* ([place] Thyroid*) 60 Mg Tablet 2 TAB PO DAILY for 30 Days, #30 TAB Discontinued Medications: Omeprazole* (Prilosec*) 20 Mg Capsule.dr 40 MG PO DAILY Discharge Summary: History of present illness: This is a 60-year-old female with known history of MELISSA, recently diagnosed hypertension, presented to ER with complaint of chest pain which was relieved by two doses of sublingual nitro. Patient stated that she has been experiencing chest pain for the past one month which is radiating to back and is aggravated on exertion, improves with rest but does not completely resolve. She also felt chest heaviness and pressure on her chest. Her chest pain is associated with sweating and shortness of breaths. She also reported bilateral lower extremity edema for the past couple of weeks, she denied nausea and vomitting. She also mentions for the past 1 week her blood pressure is high,On Tuesday she went to [facility] for chest pain and her blood pressure was 189/90, she was admitted there for 1 day and she had ct scan chest abdomen pelvis with contast, which was normal, she reports that her BP has been normal since Tuesday, she is not taking anything for her blood pressure. She also had CT angio Chest done 04/07/2025 which showed no evidence of pulmonary embolism. Hospital course: Her troponin was negative, NT proBNP was normal. EKG showed sinus rhythm with T-wave inversion in V2, echo was normal with an ejection fraction of 60-65%. Patient underwent a Lexiscan which showed no inducible ischemia. We treated with Protonix 40 mg b.i.d., which her chest pain and tightness. We also started Lasix 20 mg IV which improved her urine output. She is now symptom free and hemodynamically stable for discharge Vital Signs Date Time Temp Pulse Resp B/P (MAP) Pulse Ox O2 Delivery O2 Flow Rate FiO2 04/11/25 11:00 97.3 63 16 124/43 (70) 99 Room Air 04/11/25 08:00 0.0 21 Physical exam on discharge General: awake, alert oriented to place, time, and person HEENT: No pallor present, no icterus, moist mucous membranes Neck: No masses and tenderness Resp: Unlabored. Lungs clear to auscultation bilaterally. Chest: Normal expansion. Cardiovascular: Regular Rate and rhythm, normal S1 and S2 without murmur, rub or gallop Abdomen: Soft and non tender in epigastrium, no organomegaly, no guarding and rigidity, bowel sounds present Neuro: No focal weakness in the upper and lower limb muscles, power of the muscles 5/5 bilateral upper and lower extremities, normal reflexes bilaterally. Cranial nerves intact Extremities: No cyanosis,clubbing or edema Skin: Warm and Dry. No lesions Psych: Normal affect Laboratory Tests Test 04/09/25 20:15 04/10/25 01:39 04/10/25 06:43 04/11/25 06:03 Troponin I High Sensitivity 6 ng/L Troponin I High Sens Percent Delta 0 % Troponin I Hi Sens Absolute Change 0 ng/L D-Dimer 0.27 MG/L FEU D-Dimer Comment Potassium Level 3.5 MMOL/L 3.8 MMOL/L Magnesium Level 1.7 MG/DL 1.8 MG/DL Triglycerides Level 58 MG/DL Cholesterol Level 185 MG/DL LDL Cholesterol 100 MG/DL HDL Cholesterol 68 MG/DL Cholesterol/HDL Ratio 2.7 Thyroid Stimulating Hormone (TSH) 0.83 ulU/ml Chemistry Comments White Blood Count 5.8 X10'3 Red Blood Count 4.25 X10'6 Hemoglobin 12.6 g/dl Hematocrit 36.9 % Mean Corpuscular Volume 86.8 FL Mean Corpuscular Hemoglobin 29.6 PG Mean Corpuscular Hemoglobin Concent 34.1 g/dL Red Cell Distribution Width 12.8 % Platelet Count 276 X10'3 Mean Platelet Volume 9.0 FL Neutrophils (%) (Auto) 53.3 % Lymphocytes (%) (Auto) 34.9 % Monocytes (%) (Auto) 9.7 % Eosinophils (%) (Auto) 1.8 % Basophils (%) (Auto) 0.3 % Neutrophils # (Auto) 3.1 X10'3 Lymphocytes # (Auto) 2.0 X10'3 Monocytes # (Auto) 0.6 X10'3 Eosinophils # (Auto) 0.1 X10'3 Basophils # (Auto) 0.0 X10'3 CBC Comment Prothrombin Time 10.9 SECONDS INR International Normalized Ratio 1.1 INR Activated Partial Thromboplast Time 26 SECONDS Coagulation Comments Sodium Level 142 MMOL/L Chloride Level 103 MMOL/L Carbon Dioxide Level 29.4 MMOL/L Anion Gap 10 Blood Urea Nitrogen 10 MG/DL Creatinine 0.72 MG/DL Estimated GFR/1.73 m2 82 ML/MIN BUN/Creatinine Ratio 13.9 Glucose Level 100 MG/DL Calcium Level 8.7 MG/DL Phosphorus Level 3.4 MG/DL Total Bilirubin 0.5 MG/DL Aspartate Amino Transf (AST/SGOT) 24 U/L Alanine Aminotransferase (ALT/SGPT) 36 U/L Alkaline Phosphatase 48 IU/L Pro-B-Type Natriuretic Peptide 39 PG/ML Total Protein 6.9 G/DL Albumin 3.1 G/DL Globulin 3.8 G/DL Albumin/Globulin Ratio 0.8 Discharge course: Follow up with your primary care physician in one week Take Lasix 20 mg p.o. daily Pantoprazole 40 mg p.o. b.i.d. Visit ER in case of any acute symptoms including chest pain, palpitation, shortness of breath, dizziness, syncope. *Problems/Diagnosis: (1) Gastritis Status: Acute (2) Hypertension Status: Chronic (3) Atypical chest pain Status: Acute (4) Sleep apnea Status: Chronic (5) CHF (congestive heart failure) Total Time Spent on D/C: > 30 Minutes Counseling Services Smoking & Tobacco Cessation: N/A Addendum ac on chr cor pulmonale Date of Service: Apr 11, 2025 Billing Provider: BRITNI ZHU MD, SHIVANI, [facility] Apr 11, 2025 19:40 BRITNI ZHU MD Apr 12, 2025 06:53
== END 2025-04-11 15:22 | disposition home or self-care (01) ==
LOC: ER 16:28 → INTOOBSV 04-10 00:13 → ED HOLD 04-10 00:13 → EDBEDREQ 04-10 00:46 → PCU 3S 04-10 01:41
PROVIDERS: ADMIT Internal Medicine; ATTEND Internal Medicine
DX: R07.89 Other chest pain (principal); E78.00 Pure hypercholesterolemia, unspecified; I11.0 Hypertensive heart disease with heart failure; G47.30 Sleep apnea, unspecified; Z90.49 Acquired absence of other specified parts of digestive tract; Z90.710 Acquired absence of both cervix and uterus; Z79.899 Other long term (current) drug therapy
CPT/HCPCS: 36415; 71045; 78452; 80048; 80053; 80061; 83735; 83880; 84100; 84132; 84443; 84484; 85025; 85379; 85610; 85730; 87081; 93005; 93017; 93306; 94760; 96372; 96374; 99285; A9500; G0378; J1644; J1938; J2785